=== PATIENT | female | born 1950 | race Caucasian/White ===

== ENCOUNTER 2024-04-13 16:03 | Outpatient (OUT) | payer MEDICARE, SELFPAY ==
[2024-04-13 16:37] LABS: Basophils Absolute Auto 0.1 10^3/uL (0.0-0.1); Basophils Percent Auto 0.7 % (0.2-2.0); Eosinophils Absolute Auto 0.2 10^3/uL (0.0-0.7); Eosinophils Percent Auto 1.8 % (0.9-7.0); Hematocrit 39.1 % (36.0-48.0); Hemoglobin 12.6 g/dL (12.0-16.0); Immature Granulocytes Abs Auto 0.03 10^3/uL (0.00-0.03); Immature Granulocytes Pct Auto 0.3 % (0.0-0.5); Lymphocytes Absolute Auto 1.4 10^3/uL (1.2-3.8); Lymphocytes Percent Auto 15.7 % (20.5-60.0); Mean Corpuscular HGB Conc 32.2 g/dL (29.9-35.2); Mean Corpuscular Hemoglobin 29.3 pg (26.7-34.0); Mean Corpuscular Volume 90.9 fL (81.0-99.0); Mean Platelet Volume 9.7 fL (9.5-13.5); Monocytes Absolute Auto 0.8 10^3/uL (0.3-0.8); Monocytes Percent Auto 8.8 % (1.7-12.0); Neutrophils Absolute Auto 6.4 10^3/uL (1.4-6.5); Neutrophils Percent Auto 72.7 % (43.0-75.0); Platelet Count 186 10^3/uL (150-450); Red Cell Distribution Width 15.4 % (11.0-15.0); White Blood Count 8.7 10^3/uL (4.0-11.0)
[2024-04-13 16:52] LABS: Alanine Aminotransferase 25 U/L (14-59); Albumin Globulin Ratio 0.8; Albumin Level 3.5 g/dL (3.4-5.0); Alkaline Phosphatase 80 U/L (46-116); Anion Gap 15.2; Aspartate Amino Transferase 25 U/L (15-37); BUN Creatinine Ratio 11.8; Bilirubin Total 0.2 mg/dL (0.2-1.0); Calcium 9.2 mg/dL (8.5-10.1); Carbon Dioxide 24.4 mmol/L (21.0-32.0); Chloride 103 mmol/L (98-107); Chol HDL Ratio 3.4; Cholesterol 179 mg/dL (<=200); Estimated GFR (African America 40 (>=60 mL/min/1.73m^2); Estimated GFR (Non-African Ame 33 (>=60 mL/min/1.73m^2); Globulin 4.2 g/dL; Glucose 146 mg/dL (74-106); HDL Cholesterol 52 mg/dL (40-60); Potassium 4.6 mmol/L (3.5-5.1); Sodium 138 mmol/L (136-145); Total Protein 7.7 g/dL (6.4-8.2); Triglycerides 276 mg/dL (<=150); VLDL CHOLESTEROL 55.2 mg/dL
== END 2024-04-13 16:04 | disposition home or self-care (01) ==
PROVIDERS: PCP Family Medicine; Visit Provider Nurse Practitioner Family
DX: E78.2 Mixed hyperlipidemia (principal); I10 Essential (primary) hypertension
CPT/HCPCS: 36415; 80053; 80061; 85025

== ENCOUNTER 2024-11-02 11:24 | Outpatient (OUT) | payer MEDICARE, OTHER, SELFPAY ==
--- OUTSIDE RECORDS SUMMARY | 2024-11-02 11:35 | XMS_ITS | CCD ---
Author Organization [facility] Inform ion Partnership [facility] Care Team Providers Care Welcome Wagon Hostess Name Role Phone Agusto Corrales Attending Unavailable Antoni, Agusto Admitting Unavailable NADERER, ARTHUR Referring Unavailable NADERERARTHUR Primary Care Unavailable ANTONI, AGUSTO Attending Unavailable NADERER, DR ARTHUR Kat Primary Care Unavailable ANTONI, AGUSTO Consulting Unavailable ANTONI, AGUSTO Admitting Unavailable ANTONI, AGUSTO Attending Unavailable NADERER, DR ARTHUR Kat Primary Care Unavailable ANTONI, AGUSTO Consulting Unavailable ANTONI, AGUSTO Admitting Unavailable ANTONI, AGUSTO Admitting Unavailable ANTONI, AGUSTO Attending Unavailable NADERER, DR ARTHUR Kat Primary Care Unavailable ANTONI, AGUSTO Consulting Unavailable NEFCY, FRED Consulting Unavailable ANTONI, AGUSTO Referring Unavailable BEATA WELLS Attending Unavailable ANTNOI, AGUSTO Referring Unavailable Adolfo EASON, Freddy Hubbard Attending Unavailab le [facility] Consulting Unavailable Adolfo EASON, Freddy Hubbard Attending Unavailab le Allergies Allergy Classification Reported Allergen(s) Allergy Type Date of Onset Reaction(s) Facility (2 sources) hydroCHLOROthiazide; Translations: [HYDROCHLOROTHIAZIDE] Drug Allergy 02-19-20 17 [facility] Repository (1 source) hydroCHLOROthiazide / Lisinopril Drug Allergy 02-19-20 [facility] Repository (1 source) hydroCHLOROthiazide / Lisinopril; Translations: [LISINOPRIL-HYDROCHLORO THIAZIDE] Drug Allergy 05-25-19 [facility] Rep[facility] Problems Problem Classification Problem Date Documented Date Episodic/Chronic Cardiac dysrhythmias (1 source) Other specified cardiac arrhythmias; Translations: [OTHER SPECIFIED CARDIAC ARRHYTHMIAS] Onset: 10-29-2021 Chronic Conduction disorders (7 sources) Presence of automatic (implantable) cardiac defibrillator; Translations: [Presence of cardiac pacemaker] Onset: 09-20-2021 Chronic Coronary atherosclerosis and other heart disease (2 sources) Atherosclerotic heart disease of [place] coronary artery without angina pectoris; Translations: [Atherosclerotic heart disease of [place] coronary artery without angina pectoris] Onset: 04-13-2024 Chronic Disorders of lipid metabolism (2 sources) Mixed hyperlipidemia; Translations: [Mixed hyperlipidemia] Onset: 05-24-2022 Chronic Essential hypertension (2 sources) Essential (primary) hypertension; Translations: [Essential (primary) hypertension] Onset: 04-13-2024 Chronic Other and ill-defined heart disease (4 sources) Heart disease, unspecified; Translations: [HEART DISEASE UNSPECIFIED] Onset: 09-19-2021 Chronic Substance-related disorders (1 source) Nicotine dependence, cigarettes, uncomplicated; Translations: [NICOTINE DEPEND CIGARETTES UNCOMP] Onset: 09-20-2021 Chronic Unclassified (1 source) CONTACT W/AND (SUSP) EXPOS COVID-19; Translations: [CONTACT W/AND (SUSP) EXPOS COVID-19] Onset: 10-29-2021 Results Test Name Value Interpretation Reference Range Facility AFB Smear-[facility] 08-23-2024 Specimen Source AFB Smear-[place] Left posterior cornea Normal [facility] Comment on above: Performed By: #### C [id number] #### [address] [address] Mycobacterial Culture-[facility] 08-23-2024 Specimen Source Myco Culture-[place] Left posterior Normal [facility] Comment on above: Performed By: #### C [id number] #### [facility] [address] [address] Mycobacterial Culture-[facility] 08-20-2024 Mycobacterial Culture-[place] See Footnote Normal [facility] Comment on above: Result Comment: SOUR CE: CORNEA, LEFT, Left posterior cornea MYCOBACTERIAL CULTURE FINAL No growth after 42 days of incubation. Test Performed by: [facility] [address] [place] [address] Labor Operator: Gideon Coe Ph.D.; CLIA# [id number] Performed By: #### Ronnie D:[id number] #### [place] [id number] [address] C Fungalon 08-03-2024 C Fungal - ---- Final No growth at 4 weeks. Normal [facility] Comment on above: Performed By: #### F C #### [address] [address] C ANA 07-09-2024 C GULSHAN - ---- Final No anaerobic growth after 72 hrs. Normal [facility] Comment on above: Performed By: #### A NAC #### [address] [address] AFB Smear-[facility] 07-08-2024 Acid Fast Smear for Mycobacterium-[place] See Footnote Normal [facility] Comment on above: Result Comment: SOUR CE: CORNEA, LEFT, Left posterior cornea ACID FAST SMEAR FOR MYCOBACTERIUM FINAL Negative. Test Performed by: [facility] [place] [address] Labor Operator: Gideon Coe Ph.D.; CLIA# [id number] Performed By: #### Ronnie D:[id number] #### [address] [address] C Eye 07-08-2024 C Eye - ---- Final No growth at 48 hours. Normal [facility] Comment on above: Performed By: #### C CHAIM #### [facility] [address] [place] [address] OR Trackon 07-06-2024 Specimens Received From [facility] Normal [facility] Comment on above: Performed By: #### O rui Tracking Order #### [facility] [address] [place] [address] 36on 04-15-2024 36 Regarding lab result s from 04/13/2024: Beata Wells CNP P Cardiology Clinical Support Pool Please let her know her cholesterol levels are mildly above goal. LDL goal is <70 and if we can get her less than 55 even better, she is currently at 72. Recommend we increase her atorvastatin to 80mg daily and get a follow-up CMP/lipid panel in 3 months. Thanks! Spoke with patient and advised her to double the atorvastatin 40mg tablets for now. I sent in 80mg tablets to her pharmacy. Lab orders were mailed to her. She verbalized understanding. [facility] Office Visiton 04-13-2024 Follow-up visit [id number] Alejandra Cantu 1950 F Date Provider Department Center 04/13/2024 Andra-BEATA WELLS CARD [facility] Family History Problem Relation Age of Onset Atrial fibrillation Mother Cancer Sister Heart failure Brother Cancer Brother Family Status - Relation Status Age at Mother Sister Brother Level of Service:29589 MS OFFICE/OUTPATIENT ESTABLISHED LOW MDM 20 MIN Reason for Visit and Comments: Hypertension [385666] Pacemaker Check [337] [facility] Cardiovascular Lab Reporton 10-29-2021 Cardiovascular Lab Report [facility] Patient Name: Alejandra Cantu [facility] MR #: [id number] Physician: Agusto Corrales MD Department of Service Date: 10/29/2021 Medicine Birthdate: 1950 Division of Room #: CC Cardiology Adult Cardiovascular Services [facility] [address] [place], [place] [address] Cardiovascular Laboratory Report NEW RA RV LEAD IMPLANT PROCEDURE NOTE DATE OF PROCEDURE: 10/29/2021 PERFORMING PHYSICIAN: Dr. Agusto Corrales CONSENT: Patient LOCATION: EP Lab PROCEDURE PERFORMED: 1. Implantation of new RA and RV leads ([employer]) 2. Ultrasound guided venous access 3. Pocket revision. INDICATIONS: 1. RA and RV lead malfunction PROCEDURAL SEDATION: Versed and Fentanyl. Moderate sedation was administered by the sedation nurse under my supervision and noted in the CVL log. Intraprocedural face to face sedation time: 66min. Monitoring: Cardiac telemetry, Blood pressure, continuous pulse oxymetry. FLUOROSCOPY TIME: 4min 53sec/8mGray PREPARATION: Ms Cantu has a dual-chamber pacemaker with both RA and RV leads having noise and lead malfunction. Therefore, decision was made to proceed with 2 new leads given that she is not willing to undergo lead extraction. Patient was brought to the EP lab in the post absorptive state. A procedural pause was performed identifying the patient, the procedure to be performed and the site of implant. The left chest was prepped and draped in the usual sterile fashion. Preoperative antibiotics IV Ancef was administered. PROCEDURAL DETAILS: Patient was placed in trendelenberg position and ultrasound was used to evaluate the patency of left axillary vein and for venous access. Left axillary venous access was obtained using modified seldinger technique using a 5 Vincentian micro-puncture needle on two occasions and 0.35 wires were placed. Local infiltration of 1% Lidocaine was performed, and an incision was created in the left upper chest. Dissection was then performed using cautery down to the previously implanted device. The leads were then removed from the pacemaker generator. 6 Vincentian Safesheaths were placed over the wire. An active fixation [employer] pacing lead was then delivered through the 6Fsheath to the right ventricle. After confirmation of lead position on orthogonal views (TODD and GABONESE) to confirm septal position, the screw was activated, and the lead was placed in the right ventricular mid cavity towards the septum. After confirmation of good sensing parameters, injury pattern and pacing thresholds, 10V pacing was done and no diaphragmatic stimulation was noted. It was then secured in the pocket using three 1-0 Silk sutures. Then an active fixation [employer] lead was delivered through the 6Fsheath to the right atrial appendage. I located a position where atrial sensing was good. After confirmation of lead position on orthogonal views (TODD and GABONESE), the screw was activated. After confirmation of good sensing parameters, injury pattern and pacing thresholds, the lead was then tested using Lambert's maneuver. 10V pacing was done and no diaphragmatic stimulation was noted. It was then secured in the pocket using three 1-0 Silk sutures. Pocket hemostasis was secured, and it was then copiously and vigorously irrigated with antibiotic solution. The new leads were attached to the generator and then wrapped under the device and the device was tacked to underlying muscle and placed in the pocket. The old leads were capped. The pocket was closed in layers: muscle and subcutaneous layer using 2-0 Vicryl; skin using 3-0 absorbable monofilament suture. Glue was applied and Tegaderm dressing was placed on top. Lead parameters were then rechecked through the device as noted below. The patient was returned to the short stay room for post procedural observation. No immediate procedural complications were noted. Device info: Life800 [address] MRI DR IS1 (Implanted on 02/18/2017) Model# L301 Serial# [id number] RA lead: Model# INGEVITY 7840 (45cms) Serial# [id number]. Sensin.1mV Threshold: 0.4V@0.5ms Impedance: 725 Ohms RV lead: Model# INGEVITY 7841 (52cms) Serial# [id number] Sensin.5mV Threshold: 0.4V@0.5ms Impedance: 875 Ohms .Previously implanted and capped leads are RA lead implanted on 03/13/2007 is a Guidant 4136, serial #[id number]. The RV lead is a Guidant 4135, which was implanted again on 03/13/2007, serial #[id number]. POST PROCEDURE EXAM: Patient was hemodynamically stable. COMPLICATIONS: None. ESTIMATED BLOOD LOSS: 5cc IMPRESSION: 1. Successful RA RV lead implant with excellent pacing and sensing parameters. RECOMMENDATIONS: 1 Occlusive dressing to be removed after 2 weeks. 2. Do not wet the incision for 7 days. 3. No lifting heavy weights using arm on the same side x 3weeks 4. Do not lift elbow a (more content not included)... Normal [facility] CBC AUTO DIFFon 10-26-2021 BASO # 0.1 103/ul Normal 0.0-0.1 [facility] Comment on above: Performed By: #### C BC #### [facility] [address] [address] [address] Mauricio Madsen Basophils/100 WBC (Bld) 0.6 % Normal 0.2-2.0 [facility] Comment on above: Performed By: #### C BC #### [facility] [address] [address] [address] Mauricio Madsen EO # 0.2 103/ul Normal 0.0-0.7 [facility] Comment on above: Performed By: #### C BC #### [facility] [address] [place] [address] Dr. Mauricio Madsen Eosinophils/100 WBC (Bld) 1.7 % Normal 0.9-7.0 [facility] Comment on above: Performed By: #### C BC #### [facility] [address] [place] [address] Dr. Mauricio Madsen Erythrocyte distribution width (RBC) [Ratio] 18.6 % Critically high 11.0-15.0 [facility] Comment on above: Performed By: #### C BC #### [facility] [address] [place] [address] Dr. Mauricio Madsen Hematocrit (Bld) [Volume fraction] 36.6 % Normal 36.0-48.0 [facility] Comment on above: Performed By: #### C BC #### [facility] [address] [place] [address] Dr. Mauricio Madsen Hemoglobin (Bld) [Mass/Vol] 11.6 g/dL Critically low 12.0-16.0 [facility] Comment on above: Performed By: #### C BC #### [facility] [address] [place] [address] Dr. Mauricio Madsen IG # 0.05 10e3/ul Critically high 0.00-0.03 [facility] Comment on above: Performed By: #### C BC #### [facility] [address] [place] [address] Dr. Mauricio Madsen IG % 0.5 % Normal 0.0-0.5 [facility] Comment on above: Performed By: #### C BC #### [facility] [address] [place] [address] Dr. Mauricio Madsen LYMPH # 1.1 103/ul Critically low 1.2-3.8 [facility] Comment on above: Performed By: #### C BC #### [facility] [address] [address] [address] Mauricio Madsen Lymphocytes/100 WBC (Bld) 11.4 % Critically low 20.5-60.0 [facility] Comment on above: Performed By: #### C BC #### [facility] [address] [place] [address] Dr. Mauricio Madsen MANUAL DIFF REQ NO Normal [facility] Comment on above: Performed By: #### C BC #### [facility] [address] [place] [address] Dr. Mauricio Madsen MCH (RBC) [Entitic mass] 27.1 pg Normal 26.7-34.0 [facility] Comment on above: Performed By: #### C BC #### [facility] [address] [place] [address] Dr. Mauricio Madsen MCHC (RBC) [Mass/Vol] 31.7 g/dL Normal 29.9-35.2 [facility] Comment on above: Performed By: #### C BC #### [facility] [address] [place] [address] Dr. Mauricio Madsen MCV (RBC) [Entitic vol] 85.5 fL Normal 81.0-99.0 [facility] Comment on above: Performed By: #### C BC #### [facility] [address] [place] [address] Dr. Mauricio Madsen MONO # 0.8 103/ul Normal 0.3-0.8 [facility] Comment on above: Performed By: #### C BC #### [facility] [address] [place] [address] Dr. Mauricio Madsen Monocytes/100 WBC (Bld) 8.8 % Normal 1.7-12.0 [facility] Comment on above: Performed By: #### C BC #### [facility] [address] [place] [address] Dr. Mauricio Madsen NEUT # 7.2 103/ul Critically high 1.4-6.5 [facility] Comment on above: Performed By: #### C BC #### [facility] [address] [place] [address] Dr. Mauricio Madsen Neutrophils/100 WBC (Bld) 77.0 % Critically high 43.0-75.0 [facility] Comment on above: Performed By: #### C BC #### [facility] [address] [place] [address] Dr. Mauricio Madsen Platelet mean volume (Bld) [Entitic vol] 9.3 fL Critically low 9.5-13.5 [facility] Comment on above: Performed By: #### C BC #### [facility] [address] [place] [address] Dr. Mauricio Madsen PLT 245 103/ul Normal 150-450 [facility] Comment on above: Performed By: #### C BC #### [facility] [address] [place] [address] Dr. Mauricio Madsen RBC 4.28 106/ul Normal 4.20-5.40 [facility] Comment on above: Performed By: #### C BC #### [facility] [address] [place] [address] Dr. Mauricio Madsen WBC 9.3 103/ul Normal 4.0-11.0 [facility] Comment on above: Performed By: #### C BC #### [facility] [address] [place] [address] Dr. Mauricio Madsen Covid-19 PCR ([facility])on 10-02 SARS-CoV-2 (COVID-19) RNA PATO+probe Ql (Unsp spec) Not detected Normal NOT DETECTED [facility] Comment on above: Result Comment: This test is not yet approved or cleared by the [place] FDA. When there are no FDA-approved or cleared tests available, and other criteria are met, FDA can make tests available under an emergency access mechanism called an Emergency Use Authorization (EUA). The EUA for this test is supported by the Architect Intern of Health and Human Service's (HHS's) declaration that circumstances exist to justify the emergency use of in vitro diagnostics for the detection and/or diagnosis of the virus that causes COVID-19. This EUA will remain in effect (meaning this test can be used) for the duration of the COVID-19 declaration justifying emergency of IVDs, unless it is terminated or revoked by FDA (after which the test may no longer be used). When diagnostic testing is negative, the possibility of a false negative should be considered in the context of a patient's recent exposures and the presence of clinical signs and symptoms consistent with SARS-CoV-2. Performed By: #### [facility] #### [facility] [address] [place] [address] Dr. Mauricio Madsen PROF CHEM 8 (BAS METB)on Anion gap [Moles/Vol] 14.8 mmol/L Normal [facility] Comment on above: Performed By: #### B MP #### [facility] [address] [place] [address] Dr. Mauricio Madsen Calcium [Mass/Vol] 9.0 mg/dL Normal 8.5-10.1 [facility] Comment on above: Performed By: #### B MP #### [facility] [address] [place] [address] Dr. Mauricio Madsen Chloride [Moles/Vol] 105 mmol/L Normal 98-107 [facility] Comment on above: Performed By: #### B MP #### [facility] [address] [place] [address] Dr. Mauricio Madsen CO2 [Moles/Vol] 23.7 mmol/L Normal 21.0-32.0 [facility] Comment on above: Performed By: #### B MP #### [facility] [address] [place] [address] Dr. Mauricio Madsen Creatinine [Mass/Vol] 1.53 mg/dL Critically high 0.55-1.02 [facility] Comment on above: Performed By: #### B MP #### [facility] [address] [address] [address] Mauricio Madsen EGFR-AF TRISTANIAN 40 mL/min/1.73m2 Critically low >=60 [facility] Comment on above: Performed By: #### B MP #### [facility] [address] [address] [address] Mauricio Madsen EGFR-NON AF TRISTANIAN 33 mL/min/1.73m2 Critically low >=60 [facility] Comment on above: Performed By: #### B MP #### [facility] [address] [address] [address] Mauricio Madsen Glucose [Mass/Vol] 143 mg/dL Critically high 74-106 [facility] Comment on above: Performed By: #### B MP #### [facility] [address] [address] [address] Mauricio Madsen Potassium [Moles/Vol] 4.5 mmol/L Normal 3.5-5.1 [facility] Comment on above: Performed By: #### B MP #### [facility] [address] [address] [address] Mauricio Madsen Sodium [Moles/Vol] 139 mmol/L Normal 136-145 [facility] Comment on above: Performed By: #### B MP #### [facility] [address] [address] [address] Mauricio Madsen Urea nitrogen [Mass/Vol] 24.0 mg/dL Critically high 7.0-18.0 [facility] Comment on above: Performed By: #### B MP #### [facility] [address] [address] [address] Mauricio Madsen Urea nitrogen/Creatinine [Mass ratio] 15.7 mg/mg Normal [facility] Comment on above: Performed By: #### B MP #### [facility] [address] [address] [address] Mauricio Madsen ECHOCARDIO M/2D COMPLETEon 0 09-19-2021 ECHOCARDIO M/2D COMPLETE Patient: ALEJANDRA CANTU Exam Date: 09/19/2021 : 1950 Gender:F Ordering : AGUSTO CORRALES Admission #: [id number] Family : DR ARTHUR BEEBE . Order #: [id number] CLICK HERE TO VIEW EXAM ECHOCARDIOGRAM REPORT PROCEDURE: CARDIO PULMONARY ECHOCARDIO M/2D COMP INDICATIONS: Diastolic dysfunction, Pacemaker (14 yrs ago), Smoker COMPARISON: None. DESCRIPTION: COMPLETE ECHOCARDIOGRAM Real-time transthoracic echocardiography with 2D, M-mode, spectral and color flow Doppler performed. QUALITY: Technical quality was good. 62 140# 114/62 HR 60 LEFT VENTRICLE: Normal chamber size. Normal left ventricular wall thickness. LV EF: Global left ventricular systolic function is hyperdynamic. Calculated left ventricular ejection fraction is 72%. No regional wall motion abnormalities. DIASTOLIC: Grade II diastolic dysfunction. ATRIAL SEPTUM: Inadequately seen. LEFT ATRIUM: Mild dilatation. RIGHT ATRIUM: Normal chamber size. RIGHT VENTRICLE: Normal chamber size. Normal right ventricular systolic function. Pacer wire present. TRICUSPID VALVE: Normal mobility and thickness. No stenosis with mild regurgitation. Doppler studies reveal mildly (35-45) elevated right sided pressures. RVSP 43 mmHg. MITRAL VALVE: Normal mobility and thickness. No evidence of mitral valve stenosis. Mild mitral annular calcification. Trivial mitral regurgitation. AORTIC VALVE: Normal trileaflet appearance. Mildly calcified aortic valve. No evidence of aortic valve stenosis. No aortic regurgitation. AORTIC ROOT: Normal diameter and appearance. Ascending aorta is normal in size. PULMONIC VALVE: Normal thickness and mobility. No stenosis. Trivial regurgitation. PERICARDIUM: Small circumferential pericardial effusion. IVC: Collapses with inspirations. IVC is normal in size. CONCLUSION: Global left ventricular systolic function is hyperdynamic; visually estimated ejection fraction is 70 to 75%. No regional wall motion abnormalities. Grade 2 diastolic dysfunction. The left atrium is mildly dilated. The right ventricle is normal in size and systolic function. Mild tricuspid regurgitation. Mild elevated right-sided pressures. Small circumferential pericardial effusion. Adult Echocardiography Procedure Report Left Ventricle Left Atrium Mitral Valve Right Ventricle Aorta Aortic Valve Peak Velocity (Antegrade Flow): 1.38 m/s AoV Area (Peak Ean): 2.25 cm2, 2.25 cm2 Peak Velocity(Antegrade Flow): 1.38 m/s Peak Gradient(Antegrade Flow): 7.59 mm[Hg] Tricuspid Valve Peak Velocity (Regurgitant Flow): 3.17 m/s Peak Velocity: 0.32 m/s Pulmonic Valve PV Max Ean (0.6 - 0.9 m per sec): 0.88 m/s PV Max Gradient: 3.07 mm[Hg] Right Atrium Dictated by: Jenna Menon M.D. on 09/19/2021 at 17:11 Approved by: Jenna Menon M.D. on 09/19/2021 at 17:15 [facility] Encounters Encounter Date Encounter Type Care Provider Facility Start: 07-06-2024 End: 07-06-2024 ambulatory Freddy Mata MD Facility:[facility] Start: 05-17-2024 End: 05-17-2024 ambulatory [facility] Start: 04-13-2024 End: 04-13-2024 ambulatory [facility] Start: 10-14-2023 End: 10-14-2023 ambulatory [facility] Start: 10-30-2021 End: 10-31-2021 ambulatory [facility] Facility: Start: 10-29-2021 End: 10-30-2021 ambulatory [facility] Facility:[facility] Start: 10-29-2021 [facility]: 10-26-2021 End: 10-27-2021 ambulatory [facility] Facility: Start: 10-26-2021 End: 10-27-2021 Encounter for preprocedural laboratory examination AGUSTO ANTONI Facility: Start: 09-19-2021 End: 09-20-2021 ambulatory [facility] Facility: Payers Date Payer Category Payer Medicare 2024 Private Health Insurance 1960 Medicare [id number] 1959 Private Health Insurance CLI [id number] 1950 Unknown [id number] [id number] 1950 Unknown [id number] 2.16.84 [id number] 1949 Unknown [id number] 2.16.84 [id number] 1949 Unknown [id number] 2.16.84 [id number] 1949 Unknown [id number] 2.16. [id number] 1949 Unknown [id number] 2.16. [id number] 1949 Unknown [id number] 2.16. [id number] Clinical Note 07-06-2024 Note Date & Type Note Facility 07-06-2024 Note Clinical Information Procedure: Left keratoplasty Endothelial Pre-operative diagnosis: Endothelial corneal dystrophy SP Specimen A Descemet membrane left Gross Description Received in formalin labeled 'left Descemet membrane' is one piece of translucent tissue measuring 0.4 cm in greatest dimension. The specimen is entirely submitted in cassette A1. Microscopic Description Sections show thickened Descemet membrane with lack of endothelial cells and focal guttae. Morphologic features are consistent with endothelial corneal dystrophy. Diagnosis Left Descemet membrane, excision: Consistent with endothelial corneal dystrophy. [id number] Julianna Guillen MD PhD (Electronically signed by) Verified: 07/07/24 14:02 [facility] Comment on above: Performed By: #### S MS #### [facility] (DEFAULT) [facility] [place] [id number] Progress note 04-13-2024 Note Date & Type Note Facility 04-13-2024 Note Patient here for 1.5 year follow up sinus node dysfunction s/p PPM, hypertension, and hyperlipidemia. Has not had recent labs or imaging. She's doing very well. Denies chest pain, SOB, and palpitations. Scheduled for routine device interrogation in 2 weeks. Review of Systems All other systems reviewed and are negative. [facility] Progress note 04-13-2024 Note Date & Type Note Facility 04-13-2024 Note Cardiovascular Medic ine [facility] SUBJECTIVE Chief Complaint Patient presents with Hypertension Pacemaker Check Alejandra Cantu is a 73 y.o. female here for follow-up. HPI PMHx: Sick sinus syndrome status post PPM 2007 with lead extractions of RA and RV 10/2021 with placement of new leads, CAD s/p PCI, PAD s/p iliac stent, hypertension, HLD 04/13/2024 She has been doing well. Denies c/o CP, dyspnea, orthopnea, PND, LE edema, dizziness/LH, palpitations, syncope. Patient Active Problem List Diagnosis Cardiac pacemaker in situ Conduction disorder of the heart Essential hypertension Hypertensive disorder Peripheral vascular disease (CMS/HCC) Sinus node dysfunction (CMS/HCC) Syncope and collapse Hyperlipidemia Coronary artery disease of [place] artery of [place] heart with stable angina pectoris (CMS/HCC) Past Medical History: Diagnosis Date Abnormal ECG Conduction disorder of the heart Coronary artery disease Hyperlipidemia Hypertension PVD (peripheral vascular disease) (CMS/HCC) Sinus node dysfunction (CMS/HCC) Family History Problem Relation Name Age of Onset Atrial fibrillation Mother Cancer Sister Heart failure Brother Cancer Brother Social History Tobacco Use Smoking status: Never Smokeless tobacco: Never Substance Use Topics Alcohol use: Not Currently Allergies Allergen Reactions Hydrochlorothiazide Lisinopril-Hydrochlorothiazide Unknown Pt forgetful on reaction; Allergic to the water pill, no issues with lisinopril Review of Systems Constitutional: Negative for chills, decreased appetite, fever, malaise/fatigue and weight gain. Cardiovascular: Negative for chest pain, dyspnea on exertion, irregular heartbeat, leg swelling, near-syncope, orthopnea, palpitations, paroxysmal nocturnal dyspnea and syncope. Hematologic/Lymphatic: Negative for bleeding problem. Does not bruise/bleed easily. OBJECTIVE Visit Vitals BP 137/67 (BP Location: Left arm, Patient Position: Sitting) Pulse 62 Ht 1.575 m (5' 2 ) Wt 58.5 kg (129 lb) SpO2 95% BMI 23.59 kg/m??? Smoking Status Never BSA 1.6 m??? Medications: Current Outpatient Medications: aspirin 81 mg chewable tablet, CHEW 1 TABLET BY MOUTH EVERY DAY, Disp: 30 tablet, Rfl: 0 amLODIPine (Norvasc) 10 mg tablet, Take 1 tablet (10 mg) by mouth once daily as directed., Disp: 90 tablet, Rfl: 3 atenolol (Tenormin) 50 mg tablet, Take 1 tablet (50 mg) by mouth once daily as directed., Disp: 90 tablet, Rfl: 3 atorvastatin (Lipitor) 40 mg tablet, TAKE 1 TABLET BY MOUTH EVERYDAY AT BEDTIME, Disp: 90 tablet, Rfl: 3 lisinopril 40 mg tablet, Take 1 tablet (40 mg) by mouth once daily as directed., Disp: 90 tablet, Rfl: 3 Physical Exam Vitals reviewed. Constitutional: Appearance: Normal appearance. She is normal weight. HENT: Head: Normocephalic and atraumatic. Right Ear: External ear normal. Left Ear: External ear normal. Eyes: Extraocular Movements: Extraocular movements intact. Conjunctiva/sclera: Conjunctivae normal. Pupils: Pupils are equal, round, and reactive to light. Neck: Vascular: No carotid bruit. Cardiovascular: Rate and Rhythm: Normal rate and regular rhythm. Pulses: Normal pulses. Heart sounds: Normal heart sounds. Pulmonary: Effort: Pulmonary effort is normal. Breath sounds: Normal breath sounds. Abdominal: General: Bowel sounds are normal. Palpations: Abdomen is soft. Musculoskeletal: Cervical back: Neck supple. Right lower leg: No edema. Left lower leg: No edema. Skin: General: Skin is warm and dry. Neurological: General: No focal deficit present. Mental Status: She is alert and oriented to person, place, and time. Psychiatric: Mood and Affect: Mood normal. Behavior: Behavior normal. Thought Content: Thought content normal. Judgment: Judgment normal. Labs: Legacy Encounter on 10/29/2021 Component Date Value Ref Range Status Ventricular Rate 10/29/2021 60 BPM Final Atrial Rate 10/29/2021 60 BPM Final MS Interval 10/29/2021 192 ms Final QRS DURATION 10/29/2021 88 ms Final QT Interval 10/29/2021 280 ms Final QTC CALCULATION(BAZETT) 10/29/2021 280 ms Final R-Inlet 10/29/2021 73 degrees Final T Wave Inlet 10/29/2021 73 degrees Final Diagnosis 10/29/2021 Final Value:Atrial-paced rhythm Nonspecific T wave abnormality Abnormal ECG When compared with ECG of 29-OCT-2021 10:39, (unconfirmed) Electronic atrial pacemaker has replaced Electronic ventricular pacemaker Vent. rate has decreased BY 60 BPM Confirmed by Agusto Corrales ([id number]) on 10/29/2021 9:41:38 PM No results found for: EXTCMP , BMPR1A , CBCDIF , BNP , LASAP , RED Testing/Procedures: Device check 10/14/2023: normal functioning device, lead measurements stable, 4 mode switches consistent with AT; RA paced 99%, RV paced 5% ECHO 01/05/2018 Estimated EF 65% Grade 1 diastolic dysfunction Normal RV systolic function LA is (more content not included)... [facility] Clinical Note 10-30-2021 Note Date & Type Note Facility 10-30-2021 Note EXAM: XR CHEST 2 V HISTORY: Cardiac pacemaker procedure COMPARISON: None. TECHNIQUE: Upright PA and lateral chest x-ray FINDINGS: A left-sided pacemaker is in place. The heart is not enlarged and the vasculature is not distended. No acute infiltrate, effusion or pneumothorax is identified. The osseous structures are grossly intact. IMPRESSION: No acute infiltrate or evidence of cardiac decompensation. There is no evidence of a complicating process after placement of the pacemaker. Direct comparison with a previous study may be helpful in confirming the chronicity of these findings. Electronically authenticated by: FRED MENJIVAR Date: 2021-10-30 14:54 [facility] Summary Purpose Family History No Family History Records FoundNo Family History Records FoundNo Family History Records FoundNo Family History Records Found Advance Directives No Advanced Directives Records FoundNo Advanced Directives Records FoundNo Advanced Directives Records FoundNo Advanced Directives Records Found Additional Source Comments INFORMATION SOURCE (unrecogn ized section and content) DATE CREATED AUTHOR 11/05/2021 [facility] DATE CREATED AUTHOR AUTHOR'S ORGANIZ ATION 02/21/2022 [facility] DATE CREATED AUTHOR AUTHOR'S ORGANIZ ATION 05/19/2024 [facility] DATE CREATED AUTHOR AUTHOR'S ORGANIZ ATION 08/24/2024 [facility] FOR RECORDS PERTAINING TO PATIENTS WHO ARE OR HAVE BEEN ENROLLED IN A CHEMICAL DEPENDENCY/SUBSTANCEABUSE PROGRAM, SOME INFORMATION MAY BE OMITTED. This clinical summary was aggregated from multiple sources. Caution should be exercised in using it in the provision of clinical care. This summary normalizes information from multiple sources, and as a consequence, information in this document may materially change the coding, format and clinical context of patient data. In addition, data may be omitted in some cases. CLINICAL DECISIONS SHOULD BE BASED ON THE PRIMARY CLINICAL RECORDS. [employer] [facility]. provides no warranty or guarantee of the accuracy or completeness of information in this document.
[2024-11-02 12:21] LABS: Alanine Aminotransferase 31 U/L (14-59); Albumin Globulin Ratio 0.8; Albumin Level 3.6 g/dL (3.4-5.0); Alkaline Phosphatase 74 U/L (46-116); Anion Gap 17.7; Aspartate Amino Transferase 32 U/L (15-37); Blood Urea Nitrogen 22.0 mg/dL (7.0-18.0); Calcium 9.4 mg/dL (8.5-10.1); Carbon Dioxide 19.6 mmol/L (21.0-32.0); Chloride 107 mmol/L (98-107); Cholesterol 170 mg/dL (<=200); Estimated GFR (African America 38 (>=60 mL/min/1.73m^2); Estimated GFR (Non-African Ame 32 (>=60 mL/min/1.73m^2); Globulin 4.4 g/dL; Glucose 116 mg/dL (74-106); HDL Cholesterol 65 mg/dL (40-60); Potassium 4.3 mmol/L (3.5-5.1); Sodium 140 mmol/L (136-145); Total Protein 8.0 g/dL (6.4-8.2); Triglycerides 170 mg/dL (<=150); VLDL CHOLESTEROL 34.0 mg/dL
== END 2024-11-02 11:25 | disposition home or self-care (01) ==
LOC: LAB 11:28
PROVIDERS: PCP Family Medicine; Visit Provider Nurse Practitioner Family
DX: E78.1 Pure hyperglyceridemia (principal)
CPT/HCPCS: 36415; 80053; 80061

== ENCOUNTER 2024-11-11 12:51 | Outpatient (OUT) | payer MEDICARE, OTHER, SELFPAY ==
--- OUTSIDE RECORDS SUMMARY | 2024-11-02 13:30 | XMS_ITS | Encounter Summary ---
Author Organization [facility] Address [address] [place] [address] Care Team Providers Care Savings Teller Name Role Phone Amos De Los Santos MD Primary Care Provider [phone] Reason for Referral * Imaging (Routine) - Pending Review Specialty Diagnoses / Procedures Referred By Tammy alanis Referred To Contact Cardiology Diagnoses Sinus node dysfunction (CMS/HCC) Procedures Transthoracic echo (TTE) complete Agusto Corrales MD [address] [place] [address] Phone: tel: fax: Referral ID Status Reason Start Date Expiration Date Visits Requested Visits Authorized [id number] Pending Review Perform Procedure 11/02/2024 11/02/2025 1 1 Encounter Details Date Type Department Care Team (Late st Contact Info) Description 11/02/2024 1:30 PM EDT Office Visit [facility] [address] [place] [address] Agusto Corrales MD [address] [place] [address] Sinus node dysfunction (CMS/HCC) (Primary Dx) Social History Tobacco Use Types Packs/Day Years Used Date Smoking Tobacco: Every Day Cigarettes Smokeless Tobacco: Never Tobacco Cessation:Ready to Q uit: Not Asked; Counseling Given: Not Answered Alcohol Use Standard Drinks/Week Comments Yes 3 (1 standard drink = 0.6 oz pur e alcohol) 3 [facility] Answer Date Rec orded Fear of Current or Ex-Partner Not on file Emotionally Abused Not on file 04/24/2023 Physically Abused Not on file 04/24/2023 Sexually Abused Not on file 04/24/2023 Physically or Sexually Abused Not on file Comments Unknown Sex and Gender Information Value Date Recorded Sex Assigned at Female 10/28/2024 11:25 AM EDT Legal Sex Female 9:59 PM EDT Gender Identity Female 10/28/2024 11:25 AM EDT Sexual Orientation Heterosexual or Straight 10/02 11:25 AM EDT documented as of this encounter Last Filed Vital Signs Vital Sign Reading Time Taken Comments Blood Pressure 124/57 11/02/2024 1:20 PM EDT Pulse 61 11/02/2024 1:20 PM EDT Temperature - - Respiratory Rate - - Oxygen Saturation 94% 11/02/2024 1:20 PM EDT Inhaled Oxygen Concentration - - Weight 59 kg (130 lb) 11/02/2024 1:20 PM EDT Height 157.5 cm (5' 2 ) 11/02/2024 1:20 PM EDT Body Mass Index 23.78 11/02/2024 1:20 PM EDT documented in this encounter Progress Notes * Agusto Corrales MD - 11/02/2024 1:30 PM EDT Images from the original note were not included. [facility] Electrophysiology Consult Note Reason for visit: s/p PPM placement, lead extractions 10/2021 HPI: Alejandra Cantu is a 74 y.o. year old with past medical history of Sick sinus syndrome status post PPM 2007 with lead extractions of RA and RV 10/2021 with placement of new leads, CAD, hypertension. She has not seen for past 3 yrs by EP. Patient is here today for a follow up appointment and device check. Patient had recent lab work done. Patient states she feels good. Patient states she has no cardiac complaints at this time. Patientstates she is able to get out and mow her lawn and does out side work. 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 She continues to abuse tobacco and alsohol She denies CP, SOB, ZAMBRANO , LE edema 08/[address] Corrales cc; Lead malfunction./noise HPI: 70-year-old female with known history of CAD, hypertension, syncope and collapse from sinus node dysfunction status post pacemaker placement 2007([place]). The device was noted to have noise in the atrial lead causing of the consideration to be changed to unipolar fashion. She is significantly paced in the atrium and of late had noted noise in the right ventricular lead also. This is resulted in her having near syncope and syncope episodes. Denies chest pain, shortness of breath, orthopnea, leg swelling, vision changes, speech difficulties. Echocardiogram performed on 01/05/2018 shows EF of 65% with otherwise no significant valvular abnormalities PMH: Past Medical History: Diagnosis Date Abnormal ECG Conduction disorder of the heart Coronary artery disease Hyperlipidemia Hypertension PVD (peripheral vascular disease) Sinus node dysfunction (CMS/HCC) PSH: Past Surgical History: Procedure Laterality Date CARDIAC CATHETERIZATION CATARACT EXTRACTION INSERT / REPLACE / REMOVE PACEMAKER KNEE SURGERY SH: Social Drivers of Health Tobacco Use: High Risk (11/02/2024) Patient History Smoking Tobacco Use: Every Day Smokeless Tobacco Use: Never Passive Exposure: Not on file Alcohol Use: Not on file Financial Resource Strain: Not on file Food Insecurity: Not on file Transportation Needs: Not on file Physical Activity: Not on file Stress: Not on file Social Connections: Not on file Intimate Partner Violence: Unknown (04/24/2023) [place] Safety & Environment Fear of Current or Ex-Partner: Not on file Emotionally Abused: Not on file Physically Abused: Not on file Sexually Abused: Not on file Physically or Sexually Abused: Not on file Depression: Not on file Housing Stability: Not on file Utilities: Not on file Health Literacy: Not on file Allergies: Allergies Allergen Reactions Hydrochlorothiazide Lisinopril-Hydrochlorothiazide Unknown Pt forgetful on reaction; Allergic to the water pill, no issues with lisinopril Weight: 59kg Visit Vitals BP 124/57 (BP Location: Left arm, Patient Position: Sitting) Pulse 61 Ht 1.575 m (5' 2 ) Wt 59 kg (130 lb) SpO2 94% BMI 23.78 kg/m?? Smoking Status Every Day BSA 1.61 m?? Meds: Current Outpatient Medications on File Prior to Visit Medication Sig Dispense Refill amLODIPine (Norvasc) 10 mg tablet Take 1 tablet (10 mg) by mouth once daily as directed. 90 tablet 3 aspirin 81 mg chewable tablet CHEW 1 TABLET BY MOUTH EVERY DAY 30 tablet 0 atenolol (Tenormin) 50 mg tablet Take 1 tablet (50 mg) by mouth once daily as directed. 90 tablet 3 atorvastatin (Lipitor) 80 mg tablet Take 1 tablet (80 mg) by mouth at bedtime. 90 tablet 3 lisinopril 40 mg tablet Take 1 tablet (40 mg) by mouth once daily as directed. 90 tablet 3 atorvastatin (Lipitor) 40 mg tablet TAKE 1 TABLET BY MOUTH EVERYDAY AT BEDTIME (Patient not taking:Reported on 11/02/2024) 90 tablet 3 No current facility-administered medications on file prior to visit. ROS: Cardio Basic Cardiovascular Symptoms: no lightheadedness, no leg edema, no syncope, no orthopnea, no PND, no claudication, Constitutional Constitutional: no fever, no night sweats, no significant weight gain, no significant weight loss, no exercise intolerance Eyes Eyes: no dry eyes, no irritation, no vision change ENMT Ears: no difficulty hearing, no ear pain Nose: no frequent nosebleeds, Mouth/Throat: no sore throat, no bleeding gums, no snoring, no dry mouth, no mouth ulcers, no oral abnormalities, no teeth problems Respiratory Respiratory: no cough, no wheezing, no coughing up blood, no sleep apnea Musculoskeletal Musculoskeletal: no muscle aches, no muscle weakness, joint pain+, no back pain, no swelling in theextremities Integumentary Skin no rash, no ulcer, no varicosities, no discoloration, no pruritus Neurologic Neurologic: no loss of consciousness, no weakness, no numbness, no seizures, no dizziness, no headaches Psychiatric Psych: no depression, feeling safe in relationship, no alcohol abuse, Hematologic/Lymphatic Hematologic/Lymphatic no swollen glands, no bruising Physical Exam: Constitutional General Appearance: well-nourished, well-developed, appears stated age Level of Distress: comfortable Psychiatric Mental Status: alert, normal affect Orientation: oriented to time, place, and person Insight: good judgement Eyes Lids and Conjunctivae: non-injected, no xanthelasma ENMT Ears: no lesions on external ear Nose: no lesions on external nose Oropharynx: no cyanosis, no pallor Neck Neck: supple, trachea midline Carotid Arteries: bilateral normal upstroke, no bruits Jugular Veins: normal jugular venous pressure Thyroid: not enlarged Lungs Respiratory Effort: unlabored Chest Exam: normal curvature, no thoracic deformity Auscultation: clear, no wheezing, no rales, no rhonchi Cardiovascular Rate And Rhythm: regular Heart Sounds: normal S1, normal s2, no gallop Systolic Murmur: not heard Diastolic Murmur: not heard Extremities: no cyanosis, no edema, no peripheral signs of emboli Peripheral Pulses Radial Pulse: normal Abdomen Inspection and Palpation: soft, non distended, no bruit, non tender Musculoskeletal Inspection: no joint swelling Neurologic Gait: normal gait Skin Inspection and Palpation: warm and dry Nails: no clubbing Labs: @LABRESULTS@ No results found for: CHOLESTEROL TOTAL , HDL , LDL CALC , LDL DIRECT , TRIGLYCERIDES , TSH , T3 TOTAL , T4 TOTAL , THYROID PEROXIDASE AB , BNP EKG: No results found for this or any previous visit (from the past 4464 hours). Echo: Stress test: Coronary angiogram: 2007 Cardiovascular Laboratory Report PROCEDURE: 1. Left heart catheterization. 2. Left ventriculography. 3. Selective coronary angiography. 4. Catheter placement in the abdominal aorta. 5. Abdominal aortography. 6. Limited selective right lower extremity angiography. FINAL IMPRESSIONS: 1. Moderate single vessel coronary artery disease involving in-stent restenosis. 2. Mildly reduced global left ventricular systolic function with severe regional dysfunction. 3. Severe systemic hypertension. 4. Moderate in-stent restenosis of the right common iliac artery stent. RECOMMENDATIONS: 1. Aggressive risk factor modification and optimization of medical management. 2. Follow-up with Dr. Beyer in [place] for possible permanent pacemaker placement. 3. Follow-up with Dr. Arora as scheduled. 4. Further recommendations deferred to the inpatient cardiology service. Diagnostic Imaging: No images are attached to the encounter. Assessment and Plan: Cardiac pacemaker in situ - had device check today which revealed good numbers. Essential hypertension -stable - she takes amlodipine 10 mg, atenolol 50 mg and lisinopril 40 mg - ct to monitor at home Sinus node dysfunction (CMS/HCC) - s/p PPM Hyperlipidemia - continue Lipitor 40 mg CAD -stable, no anginal symptoms -ct aspirin and lipitor Follow-up in 1 year or sooner as needed and device check in 6 months. Adv tobacco and alsohol cessation Agusto Corrales MD Cardiac Electrophysiology [facility] documented in this encounter Plan of Treatment Scheduled Orders Name Type Priority Associated Diagnoses Orde r Schedule Transthoracic echo (TTE) complete Echocardiography Routine Sinus node dysfunction (CMS/HCC) Expected: 11/02/2024 (Approximate), Expires: 11/02/2026 documented as of this encounter Visit Diagnoses Diagnosis Sinus node dysfunction (CMS/HCC)- Primary documented in this encounter Care Teams Savings Teller Relationship Specialty Start Date End Date Amos De Los Santos MD [address] [place] [address] PCP - General 10/26/21 documented as of this encounter
--- OUTSIDE RECORDS SUMMARY | 2024-11-11 12:54 | XMS_ITS | Clinical Summary ---
Author Organization [facility] Address [address] [place] [address] Care Team Providers Care Realty Specialist Name Role Phone Amos De Los Santos MD Primary Care Provider [phone] Allergies Active Allergy Reactions Criticality Noted Date Comments Hydrochlorothiazide 05/24/2022 Lisinopril-Hydrochlorothiazide Unknown 05/24 Pt forgetful on reaction; Allergic to the water pill, no issues with lisinopril Medications aspirin 81 mg chewable tabletIndications:Ather osclerotic heart disease of [place] coronary artery without angina pectoris CHEW 1 TABLET BY MOUTH EVERY DAY 30 tablet Active amLODIPine (Norvasc) 10 mg tabletIndications:Essen tial (primary) hypertension Take 1 tablet (10 mg) by mouth once daily as directed. 90 tablet 3 025 2025 Active atenolol (Tenormin) 50 mg tabletIndications:Ather osclerotic heart disease of [place] coronary artery without angina pectoris Take 1 tablet (50 mg) by mouth once daily as directed. 90 tablet 3 025 2025 Active atorvastatin (Lipitor) 40 mg tabletIndications:Ather osclerotic heart disease of [place] coronary artery without angina pectoris TAKE 1 TABLET BY MOUTH EVERYDAY AT BEDTIME 90 tablet 3 Active Additional Information Patient not taking.Reported on 11/02/2024 lisinopril 40 mg tabletIndications:Essen tial (primary) hypertension Take 1 tablet (40 mg) by mouth once daily as directed. 90 tablet 3 025 2025 Active atorvastatin (Lipitor) 80 mg tabletIndications:Pure hypertriglyceridemia Take 1 tablet (80 mg) by mouth at bedtime. 90 tablet 3 025 2025 Active Active Problems Problem Noted Date Diagnosed Date Coronary artery disease of n ative artery of [place] heart with stable angina pectoris 10/28/2022 Assessment & Plan (10/28/2022 3:19 PM EDT): -stable, no concerns at this time -ct aspirin, lipitor Hypertensive disorder 05/24/2022 Conduction disorder of the heart 07/04/2011 Essential hypertension 07/04/2011 Assessment & Plan (05/24/2022 1:44 PM EDT): - blood pressure is elevated today - she takes amlodipine 10 mg, atenolol 50 mg and lisinopril 40 mg - as discussed with her I would recommend we increase atenolol or consider adding 3rd medication - she would like to wait as she states she has been under a lot of stress: I discussed with her although she is under a lot of stress her blood pressure and around due to history of CAD with known severe systemic hypertension - she will try blood pressure for a week and return log to me so we can discuss antihypertensive medication regimen Peripheral vascular disease 07/04/2011 Sinus node dysfunction 07/04/2011 Assessment & Plan (05/24/2022 1:44 PM EDT): - s/p PPM Syncope and collapse 07/04/2011 Cardiac pacemaker in situ 03/06/2007 Assessment & Plan (05/24/2022 1:43 PM EDT): - had device check today - no arrhythmia noted she is 99% RV pacing less than 1% RV paced with normal thresholds Hyperlipidemia Assessment & Plan (05/24/2022 1:45 PM EDT): - continue Lipitor 40 mg Encounters Date Type Department Care Team Description 11/02/2024 1:30 PM EDT Office Visit [facility] [place] [address] [place] [address] Agusto Corrales MD Sinus node dysfunction (CMS/HCC) (Primary Dx) 11/02/2024 1:15 PM EDT Ancillary Procedure [facility] [address] [place] [address] Encounter for implantable defibrillator reprogramming or check 11/02/2024 Orders Only [facility] [address] [place] [address] Harleen Regalado MA Sinus node dysfunction (CMS/HCC) (Primary Dx) from Last 3 Months Family History Medical History Relation Name Comments Cancer Brother Heart failure Brother Atrial fibrillation Mother Cancer Sister Relation Name Status Comments Brother Father Mother Alive Sister Social History Tobacco Use Types Packs/Day Years Used Date Smoking Tobacco: Every Day Cigarettes Smokeless Tobacco: Never Tobacco Cessation:Ready to Q uit: Not Asked; Counseling Given: Not Answered Alcohol Use Standard Drinks/Week Comments Yes 3 (1 standard drink = 0.6 oz pur e alcohol) 3 to per day on the [facility] Safety & Environment Answer Date Rec orded [...] Heterosexual or Straight 10/02 11:25 AM EDT Last Filed Vital Signs Vital Sign Reading [...] Mass Index 23.78 11/02/2024 1:20 PM EDT Plan of Treatment Health Maintenance Due Date Last Done Comments CT Colonography 1950 Colonoscopy 1950 Colorectal Cancer Screening 1950 FIT-DNA 1950 FIT 1950 FOBT 1950 Medicare Annual Wellness (AWV) 1950 Sigmoidoscopy 1949 Depression Screening 1961 Pneumococcal Vaccine: 50+ Years (1 of 2 - PCV) 1968 Adult Tetanus 09/28/1971 Zoster Vaccines (1 of 2) 09/28/1999 Fall Risk Screening 2014 COVID-19 Vaccine (4 - 2024-2 6 season) 2024 12/27/2020, 05/16/2020, 04/20/2020 Influenza Vaccine (#1) 2024 01/03/2022 HIB Vaccines Aged Out No longer eligi ble based on patient's age to complete this topic HPV Vaccines Aged Out No longer eligi ble based on patient's age to complete this topic IPV Vaccines Aged Out No longer eligi ble based on patient's age to complete this topic Meningococcal B Vaccine Aged Out No l onger eligible based on patient's age to complete this topic Meningococcal Vaccine Aged Out No samir pollo eligible based on patient's age to complete this topic Rotavirus Vaccines Aged Out No longer eligible based on patient's age to complete this topic Procedures Procedure Name Priority Date/Time Associated Diagnosis Comments CARDIAC DEVICE CHECK - IN CLINIC - PACEMAKER DUAL CHAMBER W/ PROG Routine 11/03/2024 1:15 PM EDT Encounter for implantable defibrillator reprogramming or check from Last 3 Months Results * CARDIAC DEVICE CHECK - IN CLINIC - PACEMAKER DUAL CHAMBER W/ PROG (11/03/2024 1:15 PM EDT) BSA 1.61 m2 TriggitS CARDIO Anatomical Region Laterality Modality Other Narrative 11/03/2024 11:35 PM EDT By using the attestations below, the signing clinician agrees that I have read and verify that the documentation has been personally reviewed by me and ensure that the documentation accurately reflects the encounter. Routine EP device follow up as per schedule. Please see attached note Agusto Corrales MD CV IMPLANTABLE CARDIAC DEVICE WA OCEDURES Final Result from Last 3 Months Insurance MEDICARE [employer] Care Teams Realty Specialist Relationship Specialty Start Date End Date Amos De Los Santos MD [address] [place] [address] PCP - General 10/26/21
--- OUTSIDE RECORDS SUMMARY | 2024-11-11 12:54 | XMS_ITS | Encounter Summary ---
Author Organization [facility] Address [address] [place] [address] Care Team Providers Care Polisher Aluminum Name Role Phone Amos De Los Santos MD Primary Care Provider [phone] Encounter Details Date Type Department Care Team (Late st Contact Info) Description 11/02/2024 Orders Only [facility] [address] [place] [address] Harleen Regalado MA Sinus node dysfunction (CMS/HCC) (Primary Dx) Social History Tobacco Use Types Packs/Day Years Used Date Smoking Tobacco: Every Day Cigarettes Smokeless Tobacco: Never Alcohol Use Standard Drinks/Week Comments Yes 3 (1 standard drink = 0.6 oz pur e alcohol) 3 to per day on the [facility] Safety & Environment Answer Date Rec orded [...] AM EDT documented as of this encounter Plan of Treatment Not on file documented as of this encounter Visit Diagnoses Diagnosis Sinus node dysfunction (CMS/HCC)- Primary documented in this encounter Care Teams Polisher Aluminum Relationship Specialty Start Date End Date Amos De Los Santos MD [address] [place] [address] PCP - General 10/26/21 documented as of this encounter
--- OUTSIDE RECORDS SUMMARY | 2024-11-11 12:54 | XMS_ITS | Clinical Summary ---
Author Organization [facility] Address [address] [place] [address], [address] [place] [address] Care Team Providers Care Montessori Preschool Teacher Name Role Phone Unavailable Primary Care Provider Unavailabl e Social History Tobacco Use Types Packs/Day Years Used Date Smoking Tobacco: Never Assessed Comments Unknown Sex and Gender Information Value Date Recorded Sex Assigned at Not on file Legal Sex Female 6:43 PM EST Gender Identity Not on file Sexual Orientation Not on file Plan of Treatment Not on file
--- OUTSIDE RECORDS SUMMARY | 2024-11-11 12:56 | XMS_ITS | CCD ---
Author Organization [facility] Inform ion [facility] Care Team Providers Care Watch Parts Grinder Name Role Phone Agusto Corrales Attending Unavailable Agusto Corrales Admitting Unavailable NADEREARTHUR Pepe Referring Unavailable ANGEREARTHUR Pepe Primary Care Unavailable MICHAEL, AGUSTO Attending Unavailable ABIEL, DR ARTHUR Kat Primary Care Unavailable MICHAELAGUSTO Hoff Consulting Unavailable MICHAEL, AGUSTO Admitting Unavailable MICHAEL, AGUSTO Attending Unavailable NADERER, DR ARTHUR Kat Primary Care Unavailable MICHAELAGUSTO Hoff Consulting Unavailable MICHAEL, AGUSTO Admitting Unavailable MICHAEL, AGUSTO Admitting Unavailable MICHAEL, AGUSTO Attending Unavailable NADERER, DR ARTHUR Kat Primary Care Unavailable MICHAELAGUSTO Hoff Consulting Unavailable NEFCY, FRED Consulting Unavailable Adolfo EASON, Freddy Hubbard Attending [facility] Unavailable Adolfo EASON, Freddy Hubbard Attending Unavailab BEATA Sweet Attending Unavailable MICHAELAGUSTO Referring Unavailable MICHAEL, AGUSTO Attending Unavailable MICHAEL, AGUSTO Referring Unavailable Allergies Allergy Classification Reported Allergen(s) Allergy Type Date of Onset Reaction(s) Facility (2 sources) hydroCHLOROthiazide; Translations: [HYDROCHLOROTHIAZIDE] Drug Allergy 02-19-[address] [facility] Repository (1 source) hydroCHLOROthiazide / Lisinopril Drug Allergy 02-19-[address] [facility] Repository (1 source) hydroCHLOROthiazide / Lisinopril; Translations: [LISINOPRIL-HYDROCHLORO THIAZIDE] Drug Allergy 05-25-[address] [facility] Repository Problems Problem Classification Problem Date Documented Date Episodic/Chronic Cardiac dysrhythmias (1 source) Other specified cardiac arrhythmias; Translations: [OTHER SPECIFIED CARDIAC ARRHYTHMIAS] Onset: 10-29-2021 Chronic Conduction disorders (7 sources) Presence of automatic (implantable) cardiac defibrillator; Translations: [Presence of cardiac pacemaker] Onset: 09-20-2021 Chronic Coronary atherosclerosis and other heart disease (2 sources) Atherosclerotic heart disease of cheesh-na coronary artery without angina pectoris; Translations: [Atherosclerotic heart disease of cheesh-na coronary artery without angina pectoris] Onset: 04-13-2024 [...] Test Name Value Interpretation Reference Range Facility Office Visiton 11-02-2024 Follow-up visit [id number] Alejandra Cantu 1950 F Date Provider Department Center 11/02/2024 AGUSTO ACEVEDO JARED [place] Family History Problem Relation Age of Onset Atrial fibrillation Mother Cancer Sister Heart failure Brother Cancer Brother Family Status - Relation Status Age at Mother Alive Father Sister Brother Level of Service:56302 AL OFFICE/OUTPATIENT NEW MODERATE MDM 45 MINUTES Normal [facility] AFB Smear-[facility] 08-23-2024 Specimen Source AFB Smear-[place] Left posterior cornea Normal [facility] Comment on above: Performed By: #### C [id number] #### [facility] [address] [place] [address] [facility] [address] [place] [address] Mycobacterial Culture-[facility] 08-23-2024 Specimen Source Myco Culture-[place] Left posterior Normal [facility] Comment on above: Performed By: #### C [id number] #### [facility] [address] [place], [place] [id number] [address] [address] Mycobacterial Culture-[facility] 08-20-2024 Mycobacterial Culture-[place] See Footnote Normal [facility] Comment on above: Result Comment: SOUR CE: CORNEA, LEFT, Left posterior cornea MYCOBACTERIAL CULTURE FINAL No growth after 42 days of incubation. Test Performed by: [facility] [place] [address] Cement Side Laster: Gideon Coe Ph.D.; CLIA# [id number] Performed By: #### C [id number] #### [address] [address] C [facility] 08-03-2024 C Fungal - ---- Final No growth at 4 weeks. Normal [facility] Comment on above: Performed By: #### F C #### [place] [id number] C ANAon 07-09-2024 C GULSHAN - ---- Final No anaerobic growth after 72 hrs. Normal [facility] Comment on above: Performed By: #### A NAC #### [place] [id number] AFB Smear-[facility] 07-08-2024 Acid Fast Smear for Mycobacterium-[place] See Footnote Normal [facility] Comment on above: Result Comment: SOUR CE: CORNEA, LEFT, Left posterior cornea ACID FAST SMEAR FOR MYCOBACTERIUM FINAL Negative. Test Performed by: [place] [address] Cement Side Laster: Gideon Coe Ph.D.; CLIA# [id number] Performed By: #### C [id number] #### [facility] [address] [place] [address] [facility] [address] [place] [address] C Eyeon 07-08-2024 C Eye - ---- Final No growth at 48 hours. [facility] Comment on above: Performed By: #### C CHAIM #### [address] [address] OR Trackon 07-06-2024 Specimens Received From [facility] Comment on above: Performed By: #### O rui Tracking Order #### [address] [address] 36on 04-15-2024 36 Regarding lab result s from 04/13/2024: Beata Gil CNP P Cardiology Clinical Support Pool Please [...] mailed to her. She verbalized understanding. Normal [facility] Office Visiton 04-13-2024 Follow-up visit [id number] Alejandra Cantu 1950 F Date Provider Department Center 04/13/2024 166-BEATA GIL [facility] Family History Problem Relation Age of Onset Atrial fibrillation Mother Cancer Sister Heart failure Brother Cancer Brother Family Status - Relation Status Age at Mother Sister Brother Level of Service:56138 AL OFFICE/OUTPATIENT ESTABLISHED LOW MDM 20 MIN Reason for Visit and Comments: Hypertension [061711] Pacemaker Check [337] Normal [facility] Cardiovascular Lab Reporton 10-29-2021 Cardiovascular Lab Report [facility] Patient Name: Alejandra Cantu [facility] MR #: [id number] Physician: Agusto Corrales MD Department of Service Date: 10/29/2021 Medicine Birthdate: 1950 Division of Room #: CC Cardiology Adult Cardiovascular Services [facility] [address] [facility]. [place] [address] Cardiovascular Laboratory Report NEW RA RV LEAD IMPLANT PROCEDURE NOTE DATE OF PROCEDURE: 10/29/2021 PERFORMING PHYSICIAN: Dr. Agusto Corrales CONSENT: Patient LOCATION: EP Lab PROCEDURE PERFORMED: 1. Implantation of new RA and RV leads ([place] [employer]) 2. Ultrasound guided venous access 3. Pocket [...] using modified seldinger technique using a 5 Indian micro-puncture needle on two occasions and 0.35 wires were placed. Local infiltration of 1% Lidocaine was performed, and an incision was created in the left upper chest. Dissection was then performed using cautery down to the previously implanted device. The leads were then removed from the pacemaker generator. 6 Indian Safesheaths were placed over the wire. An active fixation [place] [employer] pacing lead was then delivered through the 6Fsheath to the right ventricle. After confirmation of lead position on orthogonal views (TODD and DUTCH) to confirm septal position, the screw was activated, and the lead was placed in the right ventricular mid cavity towards the septum. After confirmation of good sensing parameters, injury pattern and pacing thresholds, 10V pacing was done and no diaphragmatic stimulation was noted. It was then secured in the pocket using three 1-0 Silk sutures. Then an active fixation [place] [employer] lead was delivered through the 6Fsheath to the right atrial appendage. I located a position where atrial sensing was good. After confirmation of lead position on orthogonal views (TODD and DUTCH), the screw was activated. After confirmation of [...] immediate procedural complications were noted. Device info: [employer] Accolade MRI DR IS1 (Implanted on 02/18/2017) Model# L301 Serial# [id number] RA lead: Model# INGEVITY 7840 (45cms) Serial# [id number]. Sensin.1mV Threshold: 0.4V@0.5ms Impedance: 725 Ohms RV lead: Model# INGEVITY 7841 (52cms) Serial# [id number] Sensin.5mV Threshold: 0.4V@0.5ms Impedance: 875 Ohms .Previously implanted and capped leads are RA lead implanted on 03/13/2007 is a Guidant 4136, serial #[id number]. The RV lead is a Guidant 4135, which was implanted again on 03/13/2007, serial #[id number]. POST PROCEDURE EXAM: Patient was hemodynamically stable. [...] a (more content not included)... Normal [facility] CBC AUTO DIFFon 10-26-2021 BASO # 0.1 103/ul Normal 0.0-0.1 [facility] Comment on above: Performed By: #### C BC #### [facility] [address] [place] [address] Dr. Mauricio Madsen Basophils/100 WBC (Bld) 0.6 % Normal 0.2-2.0 [facility] Comment on above: Performed By: #### C BC #### [facility] [address] [place] [address] Dr. Mauricio Madsen EO # 0.2 103/ul Normal 0.0-0.7 [facility] Comment on above: Performed By: #### C BC #### [facility] [address] [place] [place] [address] Dr. Mauricio Madsen Eosinophils/100 WBC (Bld) 1.7 % Normal 0.9-7.0 [facility] Comment on above: Performed By: #### C BC #### [facility] [address] [place] [address] Dr. Mauricio Madsen Erythrocyte distribution width (RBC) [Ratio] 18.6 % Critically high 11.0-15.0 [facility] Comment on above: Performed By: #### C BC #### [facility] [address] [place] [address] Dr. Mauricio Madsen Hematocrit (Bld) [Volume fraction] 36.6 % Normal 36.0-48.0 [facility] Comment on above: Performed By: #### C BC #### [facility] [address] [place] [address] Dr. Mauricio Madsen Hemoglobin (Bld) [Mass/Vol] 11.6 g/dL Critically low 12.0-16.0 [facility] Comment on above: Performed By: #### C BC #### [facility] [address] [place] [place] [address] Dr. Mauricio Madsen IG # 0.05 10e3/ul Critically high 0.00-0.03 [facility] Comment on above: Performed By: #### C BC #### [facility] [address] [place] [address] [address] Mauricio Madsen IG % 0.5 % Normal 0.0-0.5 [facility] Comment on above: Performed By: #### C BC #### [facility] [address] [place] [address] Dr. Mauricio Madsen LYMPH # 1.1 103/ul Critically low 1.2-3.8 [facility] Comment on above: Performed By: #### C BC #### [facility] [address] [place] [place] [address] Dr. Mauricio Madsen Lymphocytes/100 WBC (Bld) 11.4 % Critically low 20.5-60.0 [facility] Comment on above: Performed By: #### C BC #### [facility] [address] [place] [place] [address] Dr. Mauricio Madsen MANUAL DIFF REQ NO Normal [facility] Comment on above: Performed By: #### C BC #### [facility] [address] [place] [place] [address] Dr. Mauricio Madsen MCH (RBC) [Entitic mass] 27.1 pg Normal 26.7-34.0 [facility] Comment on above: Performed By: #### C BC #### [facility] [address] [place] [address] Dr. Mauricio Madsen MCHC (RBC) [Mass/Vol] 31.7 g/dL Normal 29.9-35.2 [facility] Comment on above: Performed By: #### C BC #### [facility] [address] [place] [address] Dr. Mauricio Madsen MCV (RBC) [Entitic vol] 85.5 fL Normal 81.0-99.0 [facility] Comment on above: Performed By: #### C BC #### [facility] [address] [place] [place] [address] Dr. Mauricio Madsen MONO # 0.8 103/ul Normal 0.3-0.8 [facility] Comment on above: Performed By: #### C BC #### [facility] [address] [place] [place] [address] Dr. Mauricio Madsen Monocytes/100 WBC (Bld) 8.8 % Normal 1.7-12.0 [facility] Comment on above: Performed By: #### C BC #### [facility] [address] [place] [address] Dr. Mauricio Madsen NEUT # 7.2 103/ul Critically high 1.4-6.5 [facility] Comment on above: Performed By: #### C BC #### [facility] [address] [place] [place] [address] Dr. Mauricio Madsen Neutrophils/100 WBC (Bld) 77.0 % Critically high 43.0-75.0 [facility] Comment on above: Performed By: #### C BC #### [facility] [address] [place] [place] [address] Dr. Mauricio Madsen Platelet mean volume (Bld) [Entitic vol] 9.3 fL Critically low 9.5-13.5 [facility] Comment on above: Performed By: #### C BC #### [facility] [address] [place] [place] [address] Dr. Mauricio Madsen PLT 245 103/ul Normal 150-450 [facility] Comment on above: Performed By: #### C BC #### [facility] [address] [place] [place] [address] Dr. Mauricio Madsen RBC 4.28 106/ul Normal 4.20-5.40 [facility] Comment on above: Performed By: #### C BC #### [facility] [address] [place] [place] [address] Dr. Mauricio Madsen WBC 9.3 103/ul Normal 4.0-11.0 [facility] Comment on above: Performed By: #### C BC #### [facility] [address] [place] [address] [address] [address] Mauricio Madsen Covid-19 PCR ([facility])on 10-02 SARS-CoV-2 (COVID-19) RNA PATO+probe Ql (Unsp spec) Not detected Normal NOT DETECTED [facility] Comment on above: Result Comment: This test is not yet approved or cleared by the [place] FDA. When there are no FDA-approved or cleared tests available, and other criteria are met, FDA can make tests available under an emergency access mechanism called an Emergency Use Authorization (EUA). The EUA for this test is supported by the [employer] Specialist of Health and Human Service's (HHS's) declaration [...] consistent with SARS-CoV-2. Performed By: #### C VDTB #### [facility] [address] [place] [address] [address] [address] Mauricio Madsen PROF CHEM 8 (BAS METB)on Anion gap [Moles/Vol] 14.8 mmol/L Normal [facility] Comment on above: Performed By: #### B MP #### [facility] [address] [place] [address] [address] [address] Mauricio Madsen Calcium [Mass/Vol] 9.0 mg/dL Normal 8.5-10.1 [facility] Comment on above: Performed By: #### B MP #### [facility] [address] [place] [address] [address] [address] Mauricio Madsen Chloride [Moles/Vol] 105 mmol/L Normal 98-107 [facility] Comment on above: Performed By: #### B MP #### [facility] [address] [place] [address] [address] Mauricio Madsen CO2 [Moles/Vol] 23.7 mmol/L Normal 21.0-32.0 [facility] Comment on above: Performed By: #### B MP #### [facility] [address] [place] [address] [address] Mauricio Madsen Creatinine [Mass/Vol] 1.53 mg/dL Critically high 0.55-1.02 [facility] Comment on above: Performed By: #### B MP #### [facility] [address] [place] [address] [address] Mauricio Madsen EGFR-AF [place] 40 mL/min/1.73m2 Critically low >=60 [facility] Comment on above: Performed By: #### B MP #### [facility] [address] [place] [address] [address] Mauricio Madsen EGFR-NON AF [place] 33 mL/min/1.73m2 Critically low >=60 [facility] Comment on above: Performed By: #### B MP #### [facility] [address] [place] [address] [address] Mauricio Madsen Glucose [Mass/Vol] 143 mg/dL Critically high 74-106 [facility] Comment on above: Performed By: #### B MP #### [facility] [address] [place] [address] [address] Mauricio Madesn Potassium [Moles/Vol] 4.5 mmol/L Normal 3.5-5.1 [facility] Comment on above: Performed By: #### B MP #### [facility] [address] [place] [address] [address] Mauricio Madsen Sodium [Moles/Vol] 139 mmol/L Normal 136-145 [facility] Comment on above: Performed By: #### B MP #### [facility] [address] [place] [address] [address] Mauricio Madsen Urea nitrogen [Mass/Vol] 24.0 mg/dL Critically high 7.0-18.0 [facility] Comment on above: Performed By: #### B MP #### [facility] [address] [place], [place] [address] Dr. Mauricio Madsen Urea nitrogen/Creatinine [Mass ratio] 15.7 mg/mg Normal [facility] Comment on above: Performed By: #### B MP #### [facility] [address] [place], [place] [address] Dr. Mauricio Madsen ECHOCARDIO M/2D COMPLETEon 0 09-19-2021 ECHOCARDIO M/2D COMPLETE Patient: ALEJANDRA CANTU Exam Date: 09/19/2021 : 1950 Gender:F Ordering : AGUSTO CORRALES Admission #: [id number] Family : DR ARTHUR BEEBE . Order #: [id number] CLICK HERE TO VIEW EXAM ECHOCARDIOGRAM REPORT [...] Jenna Menon M.D. on 09/19/2021 at 17:15 [facility] Encounters Encounter Date Encounter Type Care Provider Facility Start: 11-02-2024 End: 11-02-2024 ambulatory AGUSTO [facility] Start: 07-06-2024 End: 07-06-2024 ambulatory Freddy Mata MD Facility:[facility] Start: 05-17-2024 End: 05-17-2024 ambulatory [facility] Start: 04-13-2024 End: 04-13-2024 ambulatory BEATA [facility] Start: 10-30-2021 End: 10-31-2021 ambulatory AGUSTO CORRALES Facility:[facility] Start: 10-29-2021 End: 10-30-2021 ambulatory Agusto Corrales Facility:[facility] Start: 10-29-2021 Encounter for preprocedural laboratory examination AGUSTO CORRALES [facility] Start: 10-26-2021 End: 10-27-2021 ambulatory AGUSTO CORRALES Facility:[facility] Start: 10-26-2021 End: 10-27-2021 Encounter for preprocedural laboratory examination AGUSTO CORRALES Facility: Start: 09-19-2021 End: 09-20-2021 [facility] Facility: Payers Date Payer Category Payer Medicare 2024 Private Health Insurance 1960 Medicare [id number] 1960 Private Health Insurance CLI [id number] 1950 Unknown [id number] 2.16.8 [id number] 1950 Unknown [id number] 2.16.84 [id number] 1950 Unknown [id number] 2.16.84 [id number] 1950 Unknown [id number] 2.16.84 [id number] 1950 Unknown [id number] 2.16. [id number] 1950 Unknown [id number] 2.16. [id number] 1950 Unknown [id number] 2.16. [id number] Progress note 11-02-2024 Note Date & Type Note Facility 11-02-2024 Note [facility] Consult Note Reason for visit: s/p [...] has no cardiac complaints at this time. Patient states she is able to get out and [...] sinus node dysfunction status post pacemaker placement 2007([employer]). The device was noted to have noise [...] on file Intimate Partner Violence: Unknown (04/24/2023) CT Safety & Environment Fear of Current or [...] kg (130 lb) SpO2 94% BMI 23.78 kg/m??? Smoking Status Every Day BSA 1.61 m??? Meds: Current Outpatient Medications on File Prior [...] BY MOUTH EVERYDAY AT BEDTIME (Patient not taking: Reported on 11/02/2024) 90 tablet 3 No current [...] pain+, no back pain, no swelling in the extremities Integumentary Skin no rash, no ulcer, no varicosities, no discoloration, no pruritus Neurologic Neurologic: no loss of consciousness, no weakness, no numbness, no seizures, no dizziness, no headach (more content not included)... [facility] Clinical Note 07-06-2024 Note Date & Type [...] membrane, excision: Consistent with endothelial corneal dystrophy. [id number] Julianna Guillen MD PhD (Electronically signed by) Verified: 07/07/24 14:02 [facility] Comment on above: Performed By: #### S AL #### [facility] (DEFAULT) [address] [place] [address] Progress note 04-13-2024 Note Date & Type Note Facility 04-13-2024 Note Patient here for 1.5 year follow up sinus node dysfunction s/p PPM, hypertension, and hyperlipidemia. Has not had recent labs or imaging. She's doing very well. Denies chest pain, SOB, and palpitations. Scheduled for routine device interrogation in 2 weeks. Review of Systems All other systems reviewed and are negative. 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 [facility] Clinical Note 10-30-2021 Note Date & [...] by: FRED MENJIVAR Date: 2021-10-30 14:54 [facility] Summary Purpose Family History No Family History Records FoundNo Family History Records FoundNo Family History Records FoundNo Family History Records Found Advance Directives No Advanced Directives Records FoundNo Advanced Directives Records FoundNo Advanced Directives Records FoundNo Advanced Directives Records Found Additional Source Comments INFORMATION SOURCE (unrecogn ized section and content) DATE CREATED AUTHOR 11/05/2021 [facility] DATE CREATED AUTHOR AUTHOR'S ORGANIZ ATION 02/21/2022 [facility] DATE CREATED AUTHOR AUTHOR'S ORGANIZ ATION 08/24/2024 [facility] DATE CREATED AUTHOR AUTHOR'S ORGANIZ ATION 11/03/2024 [facility] FOR RECORDS PERTAINING TO PATIENTS WHO ARE [...] BE BASED ON THE PRIMARY CLINICAL RECORDS. [employer] [facility]. provides no warranty or guarantee of the accuracy or completeness of information in this document.
--- NOTE | 2024-11-11 13:00 | CA_ITS ---
Patient Name: MICHELLE PHAM MR#: [id number] : 1950 Exam Date: 11/11/2024 Ordering Doctor: ALBERTO RODRIGUEZ ECHOCARDIOGRAM REPORT PROCEDURE: CA ECHO DOPPLER COMPLETE INDICATIONS: Sinus node dysfunction COMPARISON: None. DESCRIPTION: COMPLETE ECHOCARDIOGRAM Real-time transthoracic echocardiography with 2D, M-mode, spectral and color flow Doppler performed. QUALITY: Technical quality was good. LEFT VENTRICLE: Normal chamber size. Normal left ventricular wall thickness. Global left ventricular systolic function is hyperdynamic without wall motion abnormalities. Visual estimation of left ventricular ejection fraction is 70%. LV EF: DIASTOLIC: Indeterminate left ventricular diastolic function normal left ventricular filling pressure ATRIAL SEPTUM: Visually appears intact LEFT ATRIUM: Normal chamber size. RIGHT ATRIUM: Normal chamber size. RIGHT VENTRICLE: Normal chamber size. Normal right ventricular systolic function. Pacer wires present. TRICUSPID VALVE: Normal mobility and thickness. No stenosis with trivial regurgitation. Mild pulmonary hypertension.RVSP 39mmHg. MITRAL VALVE: Mildly thickened with normal mobility. No evidence of mitral valve stenosis. Mild mitral annular calcification. Trivial mitral regurgitation. AORTIC VALVE: Normal trileaflet appearance. Mildly calcified aortic valve. Normal leaflet mobility. No evidence of aortic valve stenosis. No aortic regurgitation. AORTIC ROOT: Normal diameter and appearance. PULMONIC VALVE: Normal thickness and mobility. No stenosis. Trivial regurgitation. PERICARDIUM: Anterior pericardial free space appears to represent fatty pad IVC: Collapes with inspirations. Normal size. PLEURA: CONCLUSION: Normal left ventricular cavity size and wall thickness, hyperdynamic left ventricle systolic function without wall motion abnormalities, ejection fraction 70% Indeterminate left ventricular diastolic function but normal left ventricular filling pressure Normal right ventricular size and systolic function Mild pulmonary hypertension, RVSP 39 mmHg Pacemaker wires noted in the right cardiac chambers Aortic valve sclerosis without stenosis Mild mitral annulus calcification No significant valvular abnormalities Adult Echocardiography Procedure Report Left Ventricle LVEDD (3.7 - 5.6 cm): 4.59 cm LVESD (2.2 - 4.0 cm): 2.62 cm LVIVS thickness (0.6 - 1.2 cm): 0.87 cm LVPW thickness (0.5 - 1.0 cm): 0.70 cm e': 0.05 m/s E - e': 13.43 LVOT Max Gradient: 3.58 mm[Hg] LVOT Area (cm2): 0.95 m/s Peak Velocity (LVOT): 0.95 m/s Mean Velocity (LVOT): 0.55 m/s LVOT Diameter 1.70 cm Left Ventricular Ejection Fraction: 74.94 % Left Atrium LA Volume Index (2D A2C): 31.84 ml/m2 Left Atrium Systolic Dimension: 3.42 cm Mitral Valve MV E to A Ratio: 0.85 MV Max Gradient: MV Mean Gradient: Mitral Valve A-Wave Peak Velocity: 0.83 m/s Mitral Valve E-Wave Peak Velocity: 0.70 m/s Cardiovascular Orifice Area: Right Ventricle RV Internal Diastolic Dimension: 3.18 cm Aorta AO Root Diam: 2.95 cm Ascending Ao Diam: 2.56 cm Aortic Valve AoV Area (Peak Ean): 1.92 cm2, 1.92 cm2 AoV Area (VTI): 1.66 cm2, 1.66 cm2 Deceleration Greene: Pressure Half-Time: Peak Velocity(Antegrade Flow): 1.11 m/s Peak Gradient(Antegrade Flow): 4.97 mm[Hg] Mean Velocity(Antegrade Flow): 0.72 m/s Mean Gradient(Antegrade Flow): 2.44 mm[Hg] Velocity Time Integral: 28.19 cm Tricuspid Valve Peak Velocity (Regurgitant Flow): 2.95 m/s, 2.92 m/s, 3.00 m/s Peak Velocity: Pulmonic Valve Mean Gradient: Mean Velocity: Peak Velocity: 0.87 m/s Peak Gradient: 3.08 mm[Hg], 2.91 mm[Hg] Right Atrium Right Atrium Systolic Pressure: 32.50 ml, 32.50 ml Dictated by: Lm Wynne MD on 11/12/2024 at 18:39 Approved by: Lm Wynne MD on 11/12/2024 at 18:47
== END 2024-11-11 12:52 | disposition home or self-care (01) ==
LOC: CARD 12:52
PROVIDERS: PCP Family Medicine; Visit Provider Internal Medicine Cardiovascular Disease
DX: I25.10 Atherosclerotic heart disease of native coronary artery without angina pectoris (principal); I49.5 Sick sinus syndrome
CPT/HCPCS: 93306